=== PATIENT | female | born 1960 | race Caucasian/White ===

== ENCOUNTER 2021-09-07 22:17 | Inpatient (IN) | payer BC ==
[~2021-09-07] VITALS: Ht 167.6 cm; Wt 56.2 kg
[2021-09-08] VITALS (14 sets, daily range): BP systolic 120–208; BP diastolic 69–110
--- NOTE | 2021-09-08 | NUR ---
patient received on a stretcher from [place]. pt complaining of chest pain radiating to the back.vital signs done BP elevated , pt appears anxious , no respiratory distress noted at tis time.
[2021-09-08] MEDS ORDERED: NO HOME MEDS (00:14)
[2021-09-08] MEDS ORDERED: mag hydrox/Alum hydrox/simeth 30ml oral suspension PO PRN (01:05)
[2021-09-08] MEDS ORDERED: bisacodyl 10mg suppository rectal RC PRN (01:05)
[2021-09-08] MEDS ORDERED: morphine 2 MG/ML inj. syringe IV PRN (01:05)
[2021-09-08] MEDS ORDERED: acetaminophen 325mg tablet PO PRN ×2 (01:05)
[2021-09-08] MEDS ORDERED: diphenhydrAMINE 25mg capsule PO PRN (01:05)
[2021-09-08] MEDS ORDERED: diphenhydrAMINE 50 mg/ml inj IV PRN (01:05)
[2021-09-08] MEDS ORDERED: magnesium hydroxide 30ml (MOM) UD suspension PO PRN (01:05)
[2021-09-08] MEDS ORDERED: ondansetron 4mg rapidly disintigrating tab PO PRN (01:05)
[2021-09-08] MEDS ORDERED: HYDROcodone/acetaminophen 5mg/325mg tablet PO PRN ×2 (01:05→18:50)
[2021-09-08] MEDS ORDERED: acetaminophen 650mg rectal suppository RC PRN (01:05)
[2021-09-08] MEDS ORDERED: heparin 25,000 UNIT/250ml bag 250 ML IV SCH (01:10)
[2021-09-08] MEDS ORDERED: heparin 10,000 units/1 ML INJ IV ONE (01:10)
[2021-09-08] MEDS ORDERED: heparin 10,000 units/1 ML INJ IV PRN (01:10)
[2021-09-08] MEDS ORDERED: morphine 4 MG/ML inj SYRINge IV ONE (01:10)
[2021-09-08] MEDS: morphine 2 MG/ML inj. syringe IV PRN ×4 (01:25→20:50)
[2021-09-08] MEDS: normal saline 1000ml 1,000 ML IV SCH ×3 (01:41→21:05)
[2021-09-08 02:14] LABS: BASOPHILS % (AUTO) 0.2 % (0-1); EOSINOPHILS % (AUTO) 0.1 % (0-6); HEMATOCRIT 40.5 % (35.0-45.0); HEMOGLOBIN 13.8 g/dl (12.0-16.0); LYMPHOCYTES % (AUTO) 7.4 % (21-51); MEAN CORPUSCULAR HGB CONC 34.2 g/dL (33.0-36.5); MEAN CORPUSCULAR VOLUME 90.8 FL (78-98); MEAN PLATELET VOLUME 7.2 FL (7.4-10.4); MONOCYTES # (AUTO) 0.2 X10'3 (0-0.9); MONOCYTES % (AUTO) 1.7 % (2-12); NEUTROPHILS # (AUTO) 12.5 X10'3 (1.8-7.7); NEUTROPHILS % (AUTO) 90.6 % (42-75); PLATELET COUNT 216 X10'3 (140-440); RED BLOOD COUNT 4.46 X10'6 (4.20-5.60); RED CELL DISTRIBUTION WIDTH 14.1 % (11.5-14.5); WHITE BLOOD COUNT 13.8 X10'3 (4.5-11.0)
--- NOTE | 2021-09-08 02:16 | NUR ---
pt denies pain, heparin drip started at 0216 at 700 units/hr
[2021-09-08 02:23] LABS: APTT 29 SECONDS (22-32)
[2021-09-08 02:34] LABS: CREATINE KINASE 256 U/L (26-192); ETHANOL < 0.010 GM/DL (0.0-0.010); LIPASE 102 U/L (73-393); MAGNESIUM 1.7 MG/DL (1.5-2.4); PHOSPHORUS 3.5 MG/DL (2.3-4.5)
[2021-09-08 02:49] LABS: HEMOGLOBIN A1C 5.9 % (4.5-6.2)
--- NOTE | 2021-09-08 02:50 | NUR ---
reported lab result o0f troponin [id number] Vidal
[2021-09-08] MEDS: ipratropium/albuterol 3ml nebule NEB SCH ×6 (03:00→23:00)
[2021-09-08 04:47] LABS: CLARITY,URINE CLEAR (Clear); COLOR,URINE YELLOW (Yellow); GLUCOSE, URINE NEGATIVE (Neg); KETONES,URINE TRACE mg/dl (Neg); LEUKOCYTE ESTERASE ,URINE NEGATIVE (Neg); NITRITES, URINE NEGATIVE (Neg); OCCULT BLOOD,URINE MODERATE (Neg); PROTEIN,URINE NEGATIVE (Neg); UROBILINOGEN,URINE 0.2 E.U/dL (0.2-1.0)
[2021-09-08 04:53] LABS: UA COLLECTION TYPE CLN CATCH MIDSTREAM
[2021-09-08 04:54] LABS: BACTERIA,URINE NONE SEEN /HPF (Neg); SQUAMOUS EPITHELIAL CELL,UR FEW /LPF (FEW); WBC,URINE NONE SEEN /HPF (0-4)
[2021-09-08 04:59] LABS: URINE AMPHETAMINE SCREEN NEGATIVE (Neg); URINE BARBITUATE SCREEN NEGATIVE (Neg); URINE BENZODIAZEPINES SCREEN NEGATIVE (Neg); URINE CANNABINOID SCREEN POSITIVE (Neg); URINE COCAINE SCREEN NEGATIVE (Neg); URINE METHADONE SCREEN NEGATIVE (Neg); URINE OPIATE SCREEN POSITIVE (Neg); URINE PHENCYCLIDINE SCREEN NEGATIVE (Neg)
[2021-09-08] MEDS ORDERED: CefTRIAXone/D5W-Rocephin 1gm 50 ML IV SCH (08:00)
[2021-09-08] MEDS ORDERED: heparin, porcine 5000 units/ml vial SQ SCH (08:00)
[2021-09-08] MEDS: CefTRIAXone inj 1,000 MG in normal saline 100ml IV soln 100 ML IV SCH (08:14)
[2021-09-08] MEDS: azithromycin/NS 500mg/250ml 250 ML IV SCH (08:14)
[2021-09-08] MEDS: metoprolol succinate 25mg (24-HOUR) SR. Tablet PO SCH (08:15)
[2021-09-08] MEDS: docusate sod 100mg capsule PO SCH ×2 (08:15→20:01)
[2021-09-08] MEDS: atorvastatin 10mg tablet PO SCH (08:15)
[2021-09-08] MEDS: aspirin 81mg, enteric-coated 1 TAB TABLET.DR PO SCH (08:16)
[2021-09-08] MEDS: losartan 25mg tablet PO SCH (08:16)
[2021-09-08] MEDS ORDERED: potassium CL 10mEq/100ml bag 100 ML IV PRN (08:45)
[2021-09-08] MEDS ORDERED: magnesium 4gm in 100ml NS 100 ML IV PRN (08:45)
[2021-09-08] MEDS ORDERED: magnesium Cl slow-release 64mg tablet PO PRN (08:45)
[2021-09-08] MEDS ORDERED: potassium Cl 20 mEq SR tablet PO PRN ×2 (08:45)
[2021-09-08 13:27] LABS: ALBUMIN 3.3 G/DL (3.4-5.0); ANION GAP 10 (8-16); BLOOD UREA NITROGEN 15 MG/DL (7-18); CALCIUM 7.8 MG/DL (8.5-10.1); CHLORIDE 108 MMOL/L (99-107); CHOL/HDL RATIO 2.8 (0.00-4.99); CHOLESTEROL 187 MG/DL (0-200); CREATININE 1.07 MG/DL (0.40-0.90); GLUCOSE 130 MG/DL (70-104); HDL CHOLESTEROL 66 MG/DL (35-60); LDL CHOLESTEROL 100 MG/DL (50-100); POTASSIUM 4.2 MMOL/L (3.5-5.1); SODIUM 141 MMOL/L (135-145); TOTAL CARBON DIOXIDE 22.7 MMOL/L (24-32); TRIGLYCERIDES 121 MG/DL (20-135); eGFR 52 ML/MIN
[2021-09-08] MEDS ORDERED: nitroGLYCERIN-Tridil 50MG/D5W 250 ML IV ONE (16:40)
[2021-09-08] MEDS ORDERED: midazolam 1 mg/ML 2ml injection ONE ×2 (16:41→17:45)
[2021-09-08] MEDS ORDERED: heparin 1,000unit/ml 10ml vial 10 ML ONE (16:41)
[2021-09-08] MEDS ORDERED: fentaNYL/PF 50MCG/1 ML 2ML syringe ONE ×2 (16:41→17:40)
[2021-09-08] MEDS ORDERED: verapamil 2.5 mg/ml inj IV ONE (16:41)
[2021-09-08] MEDS ORDERED: iohexol 350MG/ML 100ml bottle IV ONE ×2 (16:42→17:31)
[2021-09-08] MEDS ORDERED: LIDOcaine 1% (10mg/ml)w/preservative inj. 20ml MDV ONE (17:00)
[2021-09-08] MEDS ORDERED: ticagrelor 90mg tablet ONE (17:17)
[2021-09-08] MEDS ORDERED: aspirin 325mg tablet ONE (17:17)
[2021-09-08] MEDS ORDERED: HYDROcodone/acetaminophen 10/325mg tab PO PRN (18:50)
[2021-09-08] MEDS ORDERED: OXAZEpam 15mg capsule PO PRN (18:50)
[2021-09-08] MEDS ORDERED: proCHLORperazine 10 MG/2 ml inj IV PRN (18:50)
--- NOTE | 2021-09-08 19:00 | NUR ---
Pt received from laboratory animal care veterinarian at 1830via wheelchair vascband in place at the right wrist, vitals sign wnl oximetry placed on the right hand digital finger saturation of 94% . at 1900 2cc of air removed at the vascband, bleeding noted at 1908 ,air replaced back.. bleeding noted at the puncture site , Dr Mick ese. as per the DR, air of total of 12 was added and patient given meds for anxiety and pain. bleeding stopped at midnight and air of 2cc removed q15 min.pt tolorated well and vascband removed no bleeding noted
[2021-09-08] MEDS: K and/or MAG REPLACEMENT MC SCH (19:56)
[2021-09-08] MEDS ORDERED: temazepam 15mg capsule PO PRN (21:00)
[2021-09-08] MEDS: ondansetron/PF 4mg/2ml inj IV PRN (23:09)
[2021-09-09] MEDS: ondansetron/PF 4mg/2ml inj IV PRN ×2 (00:10→08:44)
[2021-09-09 02:00] VITALS: BP 152/82
[2021-09-09] MEDS: ipratropium/albuterol 3ml nebule NEB SCH ×3 (02:36→11:00)
[2021-09-09 03:00] VITALS: BP 132/69
[2021-09-09 05:59] LABS: BASOPHILS # (AUTO) 0.1 X10'3 (0-0.2); BASOPHILS % (AUTO) 0.3 % (0-1); EOSINOPHILS % (AUTO) 0.1 % (0-6); HEMATOCRIT 38.3 % (35.0-45.0); HEMOGLOBIN 12.9 g/dl (12.0-16.0); LYMPHOCYTES # (AUTO) 1.4 X10'3 (1.1-4.8); LYMPHOCYTES % (AUTO) 8.9 % (21-51); MEAN CORPUSCULAR HEMOGLOBIN 30.6 PG (27.0-31.0); MEAN CORPUSCULAR HGB CONC 33.7 g/dL (33.0-36.5); MEAN PLATELET VOLUME 7.5 FL (7.4-10.4); MONOCYTES # (AUTO) 0.9 X10'3 (0-0.9); MONOCYTES % (AUTO) 5.5 % (2-12); NEUTROPHILS # (AUTO) 13.4 X10'3 (1.8-7.7); NEUTROPHILS % (AUTO) 85.2 % (42-75); PLATELET COUNT 217 X10'3 (140-440); RED BLOOD COUNT 4.21 X10'6 (4.20-5.60); RED CELL DISTRIBUTION WIDTH 13.8 % (11.5-14.5); WHITE BLOOD COUNT 15.8 X10'3 (4.5-11.0)
[2021-09-09 06:00] VITALS: BP 143/79
--- NOTE | 2021-09-09 06:17 | NUR ---
Problems reprioritized. Patient report given, questions answered & plan of care reviewed with SHELBI SAUCEDA.
[2021-09-09 06:52] LABS: ALANINE AMINOTRANSFERASE 33 U/L (12-78); ALBUMIN 3.5 G/DL (3.4-5.0); ALBUMIN/GLOBULIN RATIO 1.3 (1.1-1.5); ALKALINE PHOSPHATASE 50 IU/L (46-116); ANION GAP 11 (8-16); ASPARTATE AMINO TRANSFERASE 49 U/L (10-37); BILIRUBIN,TOTAL 0.6 MG/DL (0.1-1.0); BLOOD UREA NITROGEN 12 MG/DL (7-18); BUN/CREATININE RATIO 12.4 (6.6-38.0); CALCIUM 8.3 MG/DL (8.5-10.1); CHLORIDE 105 MMOL/L (99-107); CHOL/HDL RATIO 2.6 (0.00-4.99); CHOLESTEROL 174 MG/DL (0-200); CREATININE 0.97 MG/DL (0.40-0.90); GLUCOSE 124 MG/DL (70-104); HDL CHOLESTEROL 66 MG/DL (35-60); LDL CHOLESTEROL 79 MG/DL (50-100); PHOSPHORUS 2.8 MG/DL (2.3-4.5); SODIUM 139 MMOL/L (135-145); TOTAL CARBON DIOXIDE 22.6 MMOL/L (24-32); TOTAL PROTEIN 6.3 G/DL (6.4-8.2); TRIGLYCERIDES 103 MG/DL (20-135); eGFR 58 ML/MIN
[2021-09-09 07:00] VITALS: BP 138/69
[2021-09-09] MEDS: K and/or MAG REPLACEMENT MC SCH (08:00)
[2021-09-09] MEDS ORDERED: ticagrelor 90mg tablet PO SCH (08:00)
[2021-09-09] MEDS ORDERED: atorvastatin 20mg tablet PO SCH (08:20)
[2021-09-09] MEDS: CefTRIAXone inj 1,000 MG in normal saline 100ml IV soln 100 ML IV SCH (08:23)
[2021-09-09] MEDS: metoprolol succinate 25mg (24-HOUR) SR. Tablet PO SCH (08:23)
[2021-09-09] MEDS: azithromycin/NS 500mg/250ml 250 ML IV SCH (08:23)
[2021-09-09] MEDS: aspirin 81mg, enteric-coated 1 TAB TABLET.DR PO SCH (08:23)
[2021-09-09] MEDS: atorvastatin 10mg tablet PO SCH (08:24)
[2021-09-09] MEDS: losartan 25mg tablet PO SCH (08:24)
[2021-09-09] MEDS: docusate sod 100mg capsule PO SCH (08:24)
[2021-09-09] MEDS: morphine 2 MG/ML inj. syringe IV PRN (08:28)
[2021-09-09] MEDS ORDERED: CEFD300C17 PO (10:18)
[2021-09-09] MEDS ORDERED: ASPI-1071 PO (10:18)
[2021-09-09] MEDS ORDERED: LOSA25TA41 PO (10:18)
[2021-09-09] MEDS ORDERED: METO-395 PO (10:18)
[2021-09-09] MEDS ORDERED: ALBU8.5H17 INH (10:18)
[2021-09-09] MEDS ORDERED: TICA90TA PO (10:18)
[2021-09-09] MEDS ORDERED: ATOR40TA PO (10:21)
[2021-09-09 11:00] VITALS: BP_SYST 123; BP_SYST 139; BP_DIAS 69; BP_DIAS 76
--- NOTE | 2021-09-09 13:51 | NUR ---
pt. refuse svn- wanted to sleep- no sob observed
[2021-09-09 15:00] VITALS: BP 124/69
== END 2021-09-09 17:41 | disposition home or self-care (01) | DRG 246 ==
LOC: MED 3N 22:17
PROVIDERS: ADMIT Family Medicine; ATTEND Family Medicine
PROC: 4A023N7 Measurement of Cardiac Sampling and Pressure, Left Heart, Percutaneous Approach (ICD-10-PCS; principal; 2021-09-08)
PROC: 027034Z Dilation of Coronary Artery, One Artery with Drug-eluting Intraluminal Device, Percutaneous Approach (ICD-10-PCS; 2021-09-08)
PROC: B2111ZZ Fluoroscopy of Multiple Coronary Arteries using Low Osmolar Contrast (ICD-10-PCS; 2021-09-08)
PROC: B2151ZZ Fluoroscopy of Left Heart using Low Osmolar Contrast (ICD-10-PCS; 2021-09-08)
DX: I21.4 Non-ST elevation (NSTEMI) myocardial infarction (principal); I50.33 Acute on chronic diastolic (congestive) heart failure; J18.9 Pneumonia, unspecified organism; K85.90 Acute pancreatitis without necrosis or infection, unspecified; I16.1 Hypertensive emergency; J44.0 Chronic obstructive pulmonary disease with (acute) lower respiratory infection; M62.82 Rhabdomyolysis; I25.10 Atherosclerotic heart disease of native coronary artery without angina pectoris; F12.90 Cannabis use, unspecified, uncomplicated; R19.7 Diarrhea, unspecified; I11.0 Hypertensive heart disease with heart failure; Z80.0 Family history of malignant neoplasm of digestive organs; Z79.899 Other long term (current) drug therapy
CPT/HCPCS: 93306; 93458; C9600; 36415; 71045; 80048; 80053; 80061; 80305; 80320; 81001; 82550; 83036; 83690; 83735; 83880; 84100; 84443; 84484; 85025; 85610; 85730; 87081; 93005; 94640; 94760; 99152; 99153; A4620; A6258; C1725; C1751; C1769; C1874; C1894; G0378; J0456; J0696; J0780; J1644; J2250; J2270; J2405; J3010; J3490; J7030; Q9967